=== PATIENT | male | born 1975 | race Caucasian/White ===

== ENCOUNTER 2021-01-17 15:56 | Emergency (ER) | payer OTHER ==
[2021-01-17 16:59] LABS: HEMOGLOBIN 16.7 gm/dl (14.0-17.5); RED BLOOD COUNT 5.42 M/UL (4.20-5.50); WHITE BLOOD COUNT 7.1 K/UL (4.5-11.0)
[2021-01-17 17:32] LABS: BUN/CREATININE RATIO 13 (0-10)
== END 2021-01-17 20:15 | disposition home or self-care (01) ==
LOC: ER1 15:56
PROVIDERS: Physician Assistant
DX: R10.13 Epigastric pain (principal); R10.11 Right upper quadrant pain; R10.12 Left upper quadrant pain
CPT/HCPCS: 80053; 81001; 82150; 82550; 82553; 83690; 83735; 83874; 84100; 84484; 85025; 93005; 99284